=== PATIENT | male | born 1965 | race Caucasian/White ===

== ENCOUNTER → 2017-09-25 | Outpatient (CLI) | payer OTHER ==
--- NOTE | 2017-09-25 13:22 | P.STRESS ---
- Stress Test Note Stress Test Results/Findings: Exam Performed: stress test Exam Date: 09/25/17 Reason for Exam: CHEST PAIN Height: 5 ft 8 in Weight: 86.183 kg Protocol: RUTHANN Stage: 3 Duration of Exercise: 8:00 Resting Heart Rate: 84 Resting Blood Pressure: 129/102 Maximum Achieved Heart Rate: 141 Maximum Achieved Blood Pressure: 197/86 85% PMHR: 141 100% PMHR: 166 METS: 9.7 Technologist Comment: Stress Test Results/Findings: This is a 52-year-old gentleman with history of hypercholesterolemia, family history and smoking history, being evaluated for chest pains. Stress data:. Baseline EKG showed sinus rhythm with mild ST-T changes in inferolateral leads. Patient walked on the Ruthann protocol for about 8 minutes achieving a maximal rate of 141 with a blood pressure 197/86. His blood pressure at rest is 129, 102 with a pulse rate of 84. There is about [address] depression horizontal in inferolateral leads at peak exercise, which continued in the post x-rays. For about 67 minutes. Patient did not experience any chest pain. Final impression #1. The patient has baseline EKG changes, ischemia cannot be excluded on this test because of ST depression noted at peak exercise and also in the immediate postexercise #2. Patient did not explain to chest pain. #3. No arrhythmias were detected #4. Recommend further evaluation with nuclear stress test or stress echo.
== END | disposition home or self-care (01) ==
LOC: RADNMMAIN 11:13
PROVIDERS: ATTEND Family Medicine
DX: R94.31 Abnormal electrocardiogram [ECG] [EKG] (principal)
CPT/HCPCS: 93017

== ENCOUNTER 2017-10-11 07:13 | Day surgery (SDC) | payer OTHER ==
[2017-10-08 11:23] VITALS: BMI 28.8
[~2017-10-11 07:13] MED LIST: LACTATED RINGERS 1,000 ML IV SCH
[2017-10-11 07:31] VITALS: RESP 16; TEMP 98.5
[2017-10-11] MEDS ORDERED: LIDOCAINE 1% 20 ML VIAL (10MG/ML) FOR IV START INTRADERMA ONE (07:41)
[2017-10-11] MEDS ORDERED: PROPOFOL 10 MG/ML 20 ML VIAL IV ONE (08:10)
[2017-10-11] MEDS ORDERED: LIDOCAINE 1% INJ 10MG/ML (20 ML MDV) ONE (08:10)
--- NOTE | 2017-10-11 08:29 | P.PCN ---
Date of Procedure: 10/11/17 Procedure(s) Performed: Colonoscopy and biopsy. Preoperative diagnosis: Screening for neoplasia. Postoperative diagnosis: Diminutive polyp in the sigmoid biopsied but no large polyps or cancer. Preparation: HalfLytely prep. Sedation: Was provided by anesthesia. Brief clinical history: The patient is a 52-year-old male who is scheduled for this evaluation for screening for neoplasia age being his risk factor. In addition, his brother was diagnosed with colon cancer around 3 months ago. The patient has no abdominal complaints, bleeding or anemia. Procedure: With the patient on his left lateral decubitus position and after informed consent and adequate sedation, the perianal area was inspected and it did not show any fissures or fistulas. There were no masses felt on digital rectal examination. The Olympus CFQ 160L video colonoscope was then inserted in the rectum in the usual fashion and advanced to the cecum. There was a diminutive polyp in the proximal sigmoid which I biopsied but there were no large polyps or cancer. The mucosa appeared healthy. No obvious diverticular disease or other pathology. I retroflexed the endoscope in the rectum before the endoscope was withdrawn. The patient tolerated the procedure well. Plan: The patient was reassured. In light of the finding of diminutive polyp in the family history and his brother, I am recommending repeat exam in 5 years. He will follow up with you as planned.
[2017-10-11 08:50] VITALS: BP 108/78; PULSE 88
== END 2017-10-11 09:05 | disposition home or self-care (01) ==
LOC: ORWHC2ENDO 07:13
DX: Z12.11 Encounter for screening for malignant neoplasm of colon (principal); K63.5 Polyp of colon; Z80.0 Family history of malignant neoplasm of digestive organs; E78.5 Hyperlipidemia, unspecified; F17.200 Nicotine dependence, unspecified, uncomplicated; Z79.899 Other long term (current) drug therapy
CPT/HCPCS: 88305; 45380; J2001; J2704